=== PATIENT | female | born 1940 | race African-American/Black ===

== ENCOUNTER 2020-06-18 18:00 | Inpatient (IN) | payer MEDICARE ==
[~2020-06-18] VITALS: Ht 157.5 cm; Wt 45.5 kg
[2020-06-18] MEDS ORDERED: CALC667C PO (18:09)
[2020-06-18] MEDS ORDERED: MIRT7.5T11 PO (18:10)
[2020-06-18] MEDS ORDERED: PANT20TA3 PO (18:10)
[2020-06-18] MEDS ORDERED: SERT20OR6 PO (18:10)
[2020-06-18] MEDS ORDERED: ATOR10TA69 PO (18:10)
[2020-06-18] MEDS ORDERED: DONE23TA3 PO (18:10)
[2020-06-18] MEDS ORDERED: ROPI2TAB28 PO (18:10)
[2020-06-18] MEDS ORDERED: LEVO25TA7 PO (18:10)
[2020-06-18] MEDS ORDERED: B CM1TAB PO (18:10)
[2020-06-18 19:02] LABS: PARTIAL THROMBOPLASTIN TIME 25.8 sec (23.4-31.0); PROTHROMBIN TIME 10.8 sec (9.6-11.0)
[2020-06-18 19:03] LABS: BASOPHILS % 0.9 % (0.0-2.0); EOSINOPHILS % 2.5 % (0.0-5.0); HEMATOCRIT. 23.3 % (36.0-48.0); HEMOGLOBIN. 7.6 g/dL (12.0-16.0); LYMPHOCYTES % 27.4 % (20.0-50.0); MEAN CORPUSCULAR VOLUME 101.1 fL (81.0-99.0); MEAN PLATELET VOLUME 8.4 fl (7.4-10.4); MONOCYTES % 6.6 % (2.0-8.0); NEUTROPHILS % 62.6 % (40.0-76.0); PLATELET 172 x1000/uL (130-400); RED BLOOD CELL COUNT 2.31 mill/uL (4.2-5.4)
[2020-06-18 19:16] LABS: CHLORIDE 110 mEq/L (98-107)
[2020-06-18] MEDS ORDERED: DIPHENHYDRAMINE 50MG/ML VIAL IV PRN (22:00)
[2020-06-18] MEDS ORDERED: ONDANSETRON HCL 4MG/2ML INJ IV PRN (22:00)
[2020-06-18] MEDS ORDERED: MAGNESIUM/ALUMINUM HYDROXIDE/SIMETHICONE 30ML UDC PO PRN (22:00)
[2020-06-18] MEDS ORDERED: ACETAMINOPHEN 325MG TABLET PO PRN ×2 (22:00)
[2020-06-18] MEDS ORDERED: CLONIDINE 0.1MG TABLET PO PRN (22:00)
[2020-06-18] MEDS ORDERED: ZOLPIDEM TARTRATE 5MG TABLET PO PRN (22:00)
[2020-06-18] MEDS: SODIUM CHLORIDE 0.9% INJ 3ML FLUSH IVF SCH (22:45)
[2020-06-19] VITALS (8 sets, daily range): BP systolic 102–127; BP diastolic 44–70
[2020-06-19 01:18] LABS: HEMATOCRIT 26.2 % (36.0-48.0); HEMOGLOBIN 8.4 g/dL (12.0-16.0)
[2020-06-19] MEDS: SODIUM CHLORIDE 0.9% INJ 3ML FLUSH IVF SCH ×3 (05:20→22:00)
[2020-06-19 06:38] LABS: BASOPHILS % 0.8 % (0.0-2.0); EOSINOPHILS % 1.1 % (0.0-5.0); HEMOGLOBIN. 7.3 g/dL (12.0-16.0); LYMPHOCYTES % 22.3 % (20.0-50.0); MEAN CORPUSCULAR HEMOGLOBIN 33.7 pg (28.0-32.0); MEAN CORPUSCULAR VOLUME 102.5 fL (81.0-99.0); MEAN PLATELET VOLUME 8.8 fl (7.4-10.4); MONOCYTES % 7.7 % (2.0-8.0); NEUTROPHILS % 68.1 % (40.0-76.0); PLATELET 166 x1000/uL (130-400); RED BLOOD CELL COUNT 2.15 mill/uL (4.2-5.4)
[2020-06-20] VITALS (10 sets, daily range): BP systolic 109–187; BP diastolic 48–79
[2020-06-20 07:19] LABS: PHOSPHORUS 4.2 mg/dL (2.5-4.9)
[2020-06-20] MEDS: SODIUM CHLORIDE 0.9% INJ 3ML FLUSH IVF SCH ×3 (07:39→21:54)
[2020-06-20 07:44] LABS: BASOPHILS % 0.9 % (0.0-2.0); LYMPHOCYTES % 37.1 % (20.0-50.0); MEAN CORPUSCULAR HEMOGLOBIN 33.3 pg (28.0-32.0); MEAN CORPUSCULAR VOLUME 102.7 fL (81.0-99.0); MEAN PLATELET VOLUME 8.7 fl (7.4-10.4); MONOCYTES % 8.4 % (2.0-8.0); NEUTROPHILS % 50.6 % (40.0-76.0); PLATELET 173 x1000/uL (130-400); RED BLOOD CELL COUNT 2.01 mill/uL (4.2-5.4); RED CELL DISTRIBUTION WIDTH 17.8 % (11.6-14.6)
[2020-06-20 08:00] LABS: HEMATOCRIT. 20.6 % (36.0-48.0); HEMOGLOBIN. 6.7 g/dL (12.0-16.0)
[2020-06-20] MEDS ORDERED: EPOETIN ALFA 4000UNITS/ML VIAL SUBCUT SCH (21:00)
[2020-06-20 23:10] LABS: HEMATOCRIT 28.9 % (36.0-48.0); HEMOGLOBIN 9.6 g/dL (12.0-16.0); MEAN CORPUSCULAR HEMOGLOBIN 32.2 pg (28.0-32.0); MEAN CORPUSCULAR VOLUME 97.4 fL (81.0-99.0); PLATELET 163 x1000/uL (130-400); RED BLOOD CELL COUNT 2.97 mill/uL (4.2-5.4); RED CELL DISTRIBUTION WIDTH 18.6 % (11.6-14.6)
[2020-06-21] VITALS: BP 140/56
[2020-06-21 04:00] VITALS: BP 128/50
[2020-06-21] MEDS: SODIUM CHLORIDE 0.9% INJ 3ML FLUSH IVF SCH (05:31)
[2020-06-21 07:51] VITALS: BP 124/58
[2020-06-21 11:08] VITALS: BP 124/58
== END 2020-06-21 12:30 | disposition home or self-care (01) | DRG 314 ==
LOC: ER 18:00 → 5EST 21:12 → EDBEDREQTM 21:47 → EDBEDREQ 21:47 → ENRESERV 22:15 → 5WST 06-20 03:17
PROVIDERS: ADMIT Internal Medicine; ATTEND Internal Medicine
PROC: 30233N1 Transfusion of Nonautologous Red Blood Cells into Peripheral Vein, Percutaneous Approach (ICD-10-PCS; principal; 2020-06-20)
PROC: 5A1D70Z Performance of Urinary Filtration, Intermittent, Less than 6 Hours Per Day (ICD-10-PCS; 2020-06-20)
DX: T82.838A Hemorrhage due to vascular prosthetic devices, implants and grafts, initial encounter (principal); N18.6 End stage renal disease; K92.2 Gastrointestinal hemorrhage, unspecified; N25.81 Secondary hyperparathyroidism of renal origin; D64.9 Anemia, unspecified; E03.9 Hypothyroidism, unspecified; E11.22 Type 2 diabetes mellitus with diabetic chronic kidney disease; E78.5 Hyperlipidemia, unspecified; K21.9 Gastro-esophageal reflux disease without esophagitis; F02.80 Dementia in other diseases classified elsewhere, unspecified severity, without behavioral disturbance, psychotic disturbance, mood disturbance, and anxiety; Z79.82 Long term (current) use of aspirin; G30.9 Alzheimer's disease, unspecified; Z99.2 Dependence on renal dialysis; Y82.8 Other medical devices associated with adverse incidents; Y92.89 Other specified places as the place of occurrence of the external cause
CPT/HCPCS: 36415; 71045; 80048; 80053; 82962; 83735; 83880; 84100; 84484; 85014; 85018; 85025; 85027; 86850; 86900; 86920; 93005; 96374; 99285; J0885; P9016